=== PATIENT | female | born 1990 | race Asian ===

== ENCOUNTER 2017-05-06 08:28 | Inpatient (IN) | payer OTHER ==
[2017-05-06] MEDS ORDERED: CITRIC ACID/SODIUM CITRATE 30 ML UNIT-DOSE CUP PO ONE ×2 (09:00→09:47)
[2017-05-06] MEDS ORDERED: ELECTROLYTE-148 SOLN 500 ML IV ONE (09:00)
[2017-05-06] MEDS ORDERED: ELECTROLYTE-148 SOLN 1,000 ML IV SCH ×2 (09:30→10:00)
[2017-05-06 09:46] VITALS: BMI 36.2
--- NOTE | 2017-05-06 09:48 | HP ---
Past Medical History - Admission Chief Complaint: Here for repeat c section. History of Present Illness: 26 y/o with SIUP at 39.1 weeks gestation here for schedule repeat delivery. complicated only by late initiation of care. Low risk Cell Free DNA/NIPS, followed with MFM. Prior c section for distress, declines TOLAC. +FM, no VB/LOF/Ctx today. Overall feeling well. History Source: Patient, Medical Record Limitations to Obtaining History: No Limitations - Past Medical History SANITARY AIDE: No: Migraine Cardiovascular: No: HTN Pulmonary: No: Asthma, COPD Gastrointestinal: No: Gastritis, GERD, Irritable Bowel Disease Hepatobiliary: No: Hepatitis B, Hepatitis C Renal/: No: Hematuria, UTI Reproductive: No: Ectopic , Fibroids, PID, Polycystic Ovary Syndrome ...: 2 ...Para: 1 ...Term: 1 ...: 0 ...Spon : 0 ...Induced : 0 Heme/Onc: No: Anemia, Sickle Cell Disease Infectious Disease: No: HIV, MRSA, STD's Psych: No: Anxiety, Bipolar, Depression - Past Surgical History Past Surgical History: Yes: Hx Myomectomy: No Hx Transabdominal Cerclage: No - Smoking History Smoking history: Never smoked Aproximately how many cigarettes per day: 0 - Alcohol/Substance Use Hx Alcohol Use: No - Social History ADL: Independent History of Recent Travel: No Home Medications - Allergies Allergies/Adverse Reactions: Allergies Allergy/AdvReac Type Severity Reaction Status Date / Time No Known Drug Allergies Allergy Verified 05/06/17 09:08 - Home Medications Home Medications: Ambulatory Orders NK [No Known Home Medication] 05/06/17 Review of Systems - Review of Systems Constitutional: reports: No Symptoms Eyes: reports: No Symptoms HENT: reports: No Symptoms Neck: reports: No Symptoms Cardiovascular: reports: No Symptoms Respiratory: reports: No Symptoms Gastrointestinal: reports: No Symptoms Genitourinary: reports: No Symptoms Breasts: reports: No Symptoms Reported Musculoskeletal: reports: No Symptoms Integumentary: reports: No Symptoms Neurological: reports: No Symptoms Endocrine: reports: No Symptoms Hematology/Lymphatic: reports: No Symptoms Psychiatric: reports: No Symptoms Physical Exam - Maternity Constitutional: Yes: Well Nourished, No Distress, Calm Eyes: Yes: Conjunctiva Clear, EOM Intact HENT: Yes: Atraumatic, Normocephalic Neck: Yes: Supple, Trachea Midline Cardiovascular: Yes: Regular Rate and Rhythm Lungs: Clear to auscultation - Abdominal Exam/OB Number of Fetuses: Single Presentation: Vertex Contractions: Yes Category: I - Vaginal Exam/OB Amniotic Membrane Status: Intact - Physical Exam Psychiatric: Yes: Alert, Oriented Hemorrhage Risk Assessment - Risk Factors Medium Risk Factors: Yes: Prior , uterine surgery,or multiple laparotomies High Risk Factors: Yes: None Risk Score: 1 Risk Level: Medium Risk Problem List - Problems (1) Status post delivery Code(s): Z98.89 - OTHER SPECIFIED POSTPROCEDURAL STATES * DO NOT USE * (2) Term , repeat Code(s): Z34.90 - ENCNTR FOR SUPRVSN OF NORMAL , UNSP, UNSP TRIMESTER Assessment/Plan 26 y/o with SIUP at 39.1 weeks here for repeat c section - AFVSS - FHTs reactive - NPO, SCDs, Munoz catheter placement all ordered - Anesthesia aware - nursing aware
[2017-05-06] MEDS ORDERED: METHYLERGONOVINE MALEATE 0.2 MG/1 ML AMP IM PRN (10:20)
[2017-05-06] MEDS ORDERED: D5W-LR W/ 20 UNITS OXYTOCIN 1,000 ML IV SCH ×2 (10:30→12:15)
[2017-05-06 11:23] LABS: ARTERIAL BLD GAS O2 SATURATION 30.8 % (90-98.9); ARTERIAL BLOOD GAS BASE EXCESS -0.4 meq/l (-2-2); ARTERIAL BLOOD GAS HCO3 26.6 meq/L (22-26); ARTERIAL BLOOD GAS pH 7.31 (7.35-7.45)
[2017-05-06 11:26] LABS: ARTERIAL BLOOD GAS PO2 18.6 mmHg (80-100); PT. ON O2? NO
[2017-05-06 11:33] LABS: VENOUS BLOOD GAS HCO3 24.3 meq/L (19-25)
[2017-05-06 11:34] LABS: VENOUS PH 7.38 (7.32-7.42)
[2017-05-06] MEDS ORDERED: ONDANSETRON 4 MG/2 ML VIAL IVPB PRN (11:49)
[2017-05-06] MEDS ORDERED: ACETAMINOPHEN 1000 MG/100 ML VIAL (NON FORMULARY) IVPB PRN (11:51)
[2017-05-06] MEDS ORDERED: MEPERIDINE HCL CARPU-JECT 50 MG/1 ML DISP.SYRIN IM PRN (12:03)
--- NOTE | 2017-05-06 12:11 | OP ---
Operative Note - Note: Operative Date: 05/06/17 Pre-Operative Diagnosis: Previous Operation: Repeat CS Findings: Live male Post-Operative Diagnosis: Same as Pre-op Surgeon: Irina Duarte Paratransit Operator: Brigid You Anesthesia: Spinal Estimated Blood Loss (mls): 500 Operative Report Dictated: Yes
[2017-05-06] MEDS ORDERED: TUBERCULIN PPD 5 TU/0.1ML SYRINGE (IN PATIENT USE ONLY) ID ONE (13:15)
[2017-05-06] MEDS: IBUPROFEN 800 MG/8 ML IJ IVPB PRN (22:05)
[2017-05-07 06:45] LABS: BASOPHIL 0.3 % (0-2.0); EOSINOPHIL 0.5 % (0-4.5); MCH 20.1 pg (25.7-33.7); MCHC 30.6 g/dl (32.0-36.0); MEAN CELL VOLUME 65.6 fl (80-96); MEAN PLT VOLUME 6.6 fl (7.5-11.1); PLATELET COUNT 280 K/MM3 (134-434); WHITE BLOOD COUNT 13.6 K/mm3 (4.0-10.0)
[2017-05-07] MEDS: IBUPROFEN 800 MG/8 ML IJ IVPB PRN (08:03)
[2017-05-07 09:23] LABS: ANISOCYTOSIS 2+; MICROCYTOSIS 1+
[2017-05-07] MEDS ORDERED: BISACODYL 10 MG SUPP.RECT RC PRN (10:20)
--- NOTE | 2017-05-07 11:44 | PN ---
Progress Note (short form) - Note Progress Note: Pot op day#1.S/P C section under spinal anesthesia with duramorph uneventful.Patient stable and c/o little pain for which she is on medication.No any anesthesia related problem.Patient DC from the anesthesia care.
[2017-05-07] MEDS: PRENATAL VITAMINS W/ FOLIC ACID TABLET (FP) PO SCH (13:07)
[2017-05-07] MEDS ORDERED: ACETAMINOPHEN 325 MG TABLET (FP) PO PRN (14:48)
[2017-05-07] MEDS ORDERED: oxyCODONE HCL 5 MG TABLET PO PRN (14:48)
[2017-05-07] MEDS: oxyCODONE HCL 5 MG TABLET PO PRN (17:09)
[2017-05-07] MEDS: IBUPROFEN 600 MG TABLET (FP) PO PRN (17:09)
[2017-05-07] MEDS: SIMETHICONE 80 MG TAB.CHEW (FP) PO PRN (17:10)
--- NOTE | 2017-05-08 00:10 | PN ---
Progress Note (SOAP) - Subjective Chief Complaint: Pt doing well - Current Medications Current Medications: Active Medications Acetaminophen (Tylenol -) 650 mg PO Q4H PRN PRN Reason: FEVER OR PAIN Bisacodyl (Dulcolax Suppository -) 10 mg RC PRN PRN PRN Reason: CONSTIPATION Diphenhydramine HCl (Benadryl Injection -) 25 mg IVPUSH Q4H PRN PRN Reason: Pruritis Last Admin: 05/07/17 01:58 Dose: 25 mg Ibuprofen (Motrin -) 600 mg PO Q4H PRN PRN Reason: PAIN Last Admin: 05/07/17 17:09 Dose: 600 mg Ibuprofen (Caldolor Injection -) 800 mg IVPB Q8H PRN PRN Reason: PAIN OR FEVER Last Admin: 05/07/17 08:03 Dose: 800 mg Meperidine HCl (Demerol Injection -) 50 mg IM Q6H PRN PRN Reason: PAIN Methylergonovine Maleate (Methergine Injection -) 0.2 mg IM Q4H PRN PRN Reason: Excessive Bleeding (L&D) Oxycodone HCl (Roxicodone -) 10 mg PO Q4H PRN PRN Reason: PAIN LEVEL 6-10 Oxycodone HCl (Roxicodone -) 5 mg PO Q4H PRN PRN Reason: PAIN Last Admin: 05/07/17 17:09 Dose: 5 mg Multivit/Folic Acid/Iron ( Vitamins (Sjr) -) 1 tab PO DAILY CARLOS Last Admin: 05/07/17 13:07 Dose: Not Given Simethicone (Mylicon -) 80 mg PO Q4H PRN PRN Reason: GAS Last Admin: 05/07/17 17:10 Dose: 80 mg - Objective Vital Signs: Vital Signs Temperature 99.6 F 05/07/17 23:21 Pulse Rate 50 L 05/07/17 23:21 Respiratory Rate 20 05/07/17 23:21 Blood Pressure 122/82 05/07/17 23:21 O2 Sat by Pulse Oximetry (%) 100 05/06/17 13:00 Constitutional: Yes: Well Nourished, No Distress Neck: Yes: WNL ....Post : Yes: Uterus firm, Uterus non-tender Breast(s): Yes: WNL Musculoskeletal: Yes: WNL Extremities: Yes: WNL Edema: Yes Edema: LLE: Trace, RLE: Trace Wound/Incision: Yes: Dressing Dry and Intact Labs Lab Results: CBC, BMP 05/07/17 06:15 Problem List - Problems (1) Status post delivery Code(s): Z98.89 - OTHER SPECIFIED POSTPROCEDURAL STATES * DO NOT USE * Assessment/Plan POD 1 Stable Plan Percocet continue present management
[2017-05-08] MEDS: SIMETHICONE 80 MG TAB.CHEW (FP) PO PRN ×4 (00:11→23:50)
[2017-05-08] MEDS: oxyCODONE HCL 5 MG TABLET PO PRN ×4 (00:13→23:50)
[2017-05-08] MEDS: IBUPROFEN 600 MG TABLET (FP) PO PRN ×4 (00:14→23:50)
--- NOTE | 2017-05-08 07:02 | PN ---
Post Progress Note - Subjective Subjective: Pt seen/evaluated and doing well. Pain controlled with oral medications. OOB ambulating without issue. No n/v , tolerating diet. VB/lochia minimal. No CP/ SOB/F/C/LOPEZ. No complaints. Type of Delivery: Repeat C/S Vital Signs: Vital Signs Temperature 98.1 F 05/08/17 02:00 Pulse Rate 50 L 05/07/17 23:21 Respiratory Rate 20 05/07/17 23:21 Blood Pressure 122/82 05/07/17 23:21 O2 Sat by Pulse Oximetry (%) 100 05/06/17 13:00 Uterus: Yes: Fundus Firm, Fundus below umbilicus Incision: Yes: Sutures intact Abdomen/GI: Yes: Abdomen soft, Passing flatus, Tolerating PO. No: Abdominal Distention Lochia: Yes: Rubra Lochia, amount: Small Extremities: Yes: Calves non-tender, Edema (trace LE edema B/L - nonpittin) Perineum: Yes: Intact Activity: Ambulating - Labs Labs: CBC WBC 13.6 K/mm3 (4.0-10.0) H D 05/07/17 06:15 RBC 4.11 M/mm3 (3.60-5.2) 05/07/17 06:15 Hgb 8.3 GM/dL (10.7-15.3) L D 05/07/17 06:15 Hct 26.9 % (32.4-45.2) L D 05/07/17 06:15 MCV 65.6 fl (80-96) L 05/07/17 06:15 MCH 20.1 pg (25.7-33.7) L 05/07/17 06:15 MCHC 30.6 g/dl (32.0-36.0) L 05/07/17 06:15 RDW 17.0 % (11.6-15.6) H 05/07/17 06:15 Plt Count 280 K/MM3 (134-434) 05/07/17 06:15 MPV 6.6 fl (7.5-11.1) L 05/07/17 06:15 Neutrophils % 69.0 % (42.8-82.8) 05/07/17 06:15 Lymphocytes % 24.2 % (8-40) D 05/07/17 06:15 Monocytes % 6.0 % (3.8-10.2) 05/07/17 06:15 Eosinophils % 0.5 % (0-4.5) 05/07/17 06:15 Basophils % 0.3 % (0-2.0) 05/07/17 06:15 Anisocytosis 2+ 05/07/17 06:15 Microcytosis 1+ 05/07/17 06:15 Problem List - Problems (1) Status post delivery Code(s): Z98.89 - OTHER SPECIFIED POSTPROCEDURAL STATES * DO NOT USE * (2) Term , repeat Code(s): Z34.90 - ENCNTR FOR SUPRVSN OF NORMAL , UNSP, UNSP TRIMESTER (3) Anemia Code(s): D64.9 - ANEMIA, UNSPECIFIED Assessment/Plan 26 y/o POD#2 s/p repeat delivery, doing well - AFVSS - Hgb 8.3 post delivery, asymptomatic, continue vitmamins - regular diet, PO pain meds, ambulation encouraged - discharge home in a.m. if stable
--- NOTE | 2017-05-08 08:18 | OP ---
DATE OF OPERATION: 05/06/2017 PREOPERATIVE DIAGNOSIS: Previous section. OPERATION: Repeat section. POSTOPERATIVE DIAGNOSIS: Previous section. SURGEON: Bernard Duarte MD PRODUCER DIRECTOR: Brigid You DO ANESTHESIA: Spinal. ANESTHESIOLOGIST: Amara Rodriguez MD FINDINGS: Live infant delivered in OT position. DESCRIPTION OF PROCEDURE: Patient was taken to the operating room, placed in supine position, prepped and draped in the usual sterile fashion. Timeout was performed in accordance to hospital regulation. A Pfannenstiel skin incision was made through the patient's previous scar. Cautery was then used to go through layers of abdominal wall to the level of the fascia. Fascia was cut in the midline. Cautery was then used to open the fascia in the following fashion. Dillon was then used to bluntly and sharply dissect the rectus muscle off the fascia. Muscles split in the midline. Peritoneal cavity was then entered and carried upward and downward. Bladder retractor was then placed. Vesicouterine reflection was then entered and carried upward and downward. Bladder was bluntly dissected out of the operative field, and bladder retractor was then replaced. Scalpel was then used to make a low transverse uterine incision. Incision was carried upward using bandage scissors. A live was delivered in OT position. Nose and mouth suction was performed. Delayed cord clamping was done. Cord was clamped and cut. Infant was handed to the forest biometrics professor. Cord blood obtained. Placenta was manually extracted from the uterus. Uterus exteriorized and cleaned with clean laparotomy pads. Uterine incision then closed using 0 Biosyn suture, first layer of continuous and locking, second layer imbricating the first layer. Hemostasis was achieved. Figure-of-8 sutures were then used to successfully maintain hemostasis. Uterus interiorized and cleaned with clean laparotomy pads. Peritoneum closed using 0 Biosyn suture. Fascia was then closed using 0 Vicryl suture in 2 parts. Subcutaneous was then closed using 0 Biosyn suture. Skin was then closed using 3-0 Vicryl in subcuticular fashion. Wound was washed and dressed. Patient tolerated the procedure well, was taken to recovery room in stable condition. BERNARD DUARTE M.D. DAMASO/[id number]
[2017-05-08] MEDS: PRENATAL VITAMINS W/ FOLIC ACID TABLET (FP) PO SCH (09:36)
[2017-05-09 08:56] LABS: BASOPHIL 0.3 % (0-2.0); EOSINOPHIL 1.3 % (0-4.5); MCH 20.2 pg (25.7-33.7); MCHC 30.4 g/dl (32.0-36.0); MEAN CELL VOLUME 66.4 fl (80-96); MEAN PLT VOLUME 6.5 fl (7.5-11.1); NEUTROPHILS 72.8 % (42.8-82.8); PLATELET COUNT 305 K/MM3 (134-434); RDW 17.4 % (11.6-15.6); WHITE BLOOD COUNT 12.1 K/mm3 (4.0-10.0)
[2017-05-09] MEDS: SIMETHICONE 80 MG TAB.CHEW (FP) PO PRN (10:09)
[2017-05-09] MEDS: PRENATAL VITAMINS W/ FOLIC ACID TABLET (FP) PO SCH (10:09)
[2017-05-09] MEDS: IBUPROFEN 600 MG TABLET (FP) PO PRN (10:09)
[2017-05-09] MEDS: oxyCODONE HCL 5 MG TABLET PO PRN (10:10)
--- NOTE | 2017-05-09 11:04 | DS ---
Physical Exam-PATTERN GRADER SUPERVISOR Vital Signs: Vital Signs Temperature 98.6 F 05/08/17 22:00 Pulse Rate 88 05/08/17 09:00 Respiratory Rate 20 05/08/17 09:00 Blood Pressure 120/74 05/08/17 09:00 O2 Sat by Pulse Oximetry (%) 100 05/06/17 13:00 Labs: CBC, BMP 05/09/17 08:00 Delivery - Delivery Type of Anesthesia: Spinal Episiotomy/Laceration: None EBL (cc): 500 Delivery, Single - Stages of Labor Date of Delivery: 05/06/17 Time of Delivery: 10:56 Time Placenta Delivered: 10:57 - Condition of Veneer Stapler/Coke Loader Present: Yes Name: Scott Gamboa Infant Gender: Male Weight: 6 lb 12 oz Position: OT Total Hours ROM (Hrs/Mins): 2mins - 1 Minute Total Score: 8 5 Minutes Total Score: 9 - [place] Feeding Plan Initial Plan: Exclusive throughout hospitalization Discharge Summary Reason For Visit: CSECTION Current Active Problems Anemia (Acute) Term , repeat (Acute) Condition: Good - Instructions Diet, Activity, Other Instructions: Physical activity Resume your normal everyday activity as tolerated no heavy lifting or exercise until seen by your surgeon. You may walk unlimited jacob of and climb stairs. You may resume driving the car when you feel safe and comfortable behind the wheel. No sexual activity as instructed. Wound care If you have a bandage, leave it on, and keep dry for 48-72 hours. After that time discard the outer bandage. If they are tapes on the skin under the out of bandage leave them in place. They will peel off in the next 7 to 10 days. Do Not Peel them off. You may shower the day after surgery. If there are tapes present on the skin, you may shower over them. Diet There are no dietary restrictions. Eat healthy, high-fiber foods. Drink 6 to 8 glasses of liquid each day. This will assist in keeping your bowels are regular. Pain management You may take Tylenol or acetaminophen or Ibuprofen (for example, Motrin, Advil etc.) from my pain prescription medication is ordered should be taken as prescribed for moderate to severe pain. Call MD for any of the following: Severe pain not relieved by medication Fever of 101 or higher Excessive bleeding or drainage on dressing Inability to urinate Referrals: Irina Duarte MD [Staff Physician] - 1 Week Disposition: HOME - Home Medications Comprehensive Discharge Medication List: Ambulatory Orders Ibuprofen [Motrin -] 600 mg PO QID PRN #28 tablet 05/08/17 Oxycodone HCl/Acetaminophen [Percocet 5-325 mg Tablet -] 1 tab PO Q4H #20 tablet MDD 6 05/08/17
[2017-05-09 13:22] VITALS: BP 120/80; PULSE 76; TEMP 97.6
--- NOTE | 2017-05-10 13:15 | PATH ---
Surgical Pathology Report Patient Name: MAYANK DRAKE [facility]. Rec. #: [id number] /Age/Gender: 1990 (Age: 26) / F Account: [id number] Location: [facility] OBS/UNDERWATER WELDER Taken: 05/06/2017 Received: 05/07/2017 Reported: 05/10/2017 Physicians: Irina Duarte M.D. Specimen(s) Received PLACENTA Clinical History 39.1 weeks, previous c/section Repeat c/section Final Diagnosis PLACENTA, DELIVERY: INTACT THIRD TRIMESTER PLACENTA WITH MILD PREVILLOUS, PERIVILLOUS, AND PRECHORIONIC FIBRIN DEPOSITION, THREE VESSEL UMBILICAL CORD, AND UNREMARKABLE PLACENTAL MEMBRANES. Electronically Signed Juliano Culp M.D. Gross Description The specimen is received fresh, labeled "placenta" and is a 434 gram, 20 x 15 x 2.5 cm placenta with attached membranes and umbilical cord. The attached membranes are glistening and translucent and insert marginally. The umbilical cord measures 16 cm in length and averages 1.2 cm in diameter. The cord inserts eccentrically, 4 cm to the nearest margin. No true knots or strictures are identified. Cut surface of the umbilical cord reveals 3 vessels. The surface is lofton-blue with fibrin deposition and appropriate caliber vessels. The maternal surface is lobulated and appears complete with no adherent blood clots or areas of thinning. Sectioning reveals red-brown, spongy parenchyma. No focal lesions are identified. Bookbinding Machine Operator sections are submitted in three cassettes as follows: 1- membrane rolls and umbilical cord; 2-3- full thickness sections of placenta. [facility]/05/07/2017 the medical center/05/07/2017
== END 2017-05-09 12:15 | disposition home or self-care (01) | DRG 540 ==
LOC: JLDR 08:28 → J3W 13:29
PROVIDERS: ADMIT Obstetrics & Gynecology; ATTEND Obstetrics & Gynecology
PROC: 10D00Z1 Extraction of Products of Conception, Low, Open Approach (ICD-10-PCS; principal; 2017-05-06)
DX: O34.211 Maternal care for low transverse scar from previous cesarean delivery (principal); Z3A.39 39 weeks gestation of pregnancy; Z37.0 Single live birth; O90.81 Anemia of the puerperium; O99.214 Obesity complicating childbirth; E66.8 Other obesity; Z68.36 Body mass index [BMI] 36.0-36.9, adult
CPT/HCPCS: 36415; 36600; 82803; 85025; 88307-TC